=== PATIENT | female | born 1970 | race Caucasian/White ===

== ENCOUNTER → 2023-12-15 13:04 | Outpatient (REF) | payer OTHER, SELFPAY | LOC: HWRAD 13:04 | PROVIDERS: ATTENDING PHYSICIAN Nurse Practitioner | DX: I50.9 Heart failure, unspecified (principal) | CPT/HCPCS: 71046 ==

== ENCOUNTER → 2024-01-09 13:40 | Outpatient (REF) | payer OTHER, SELFPAY | LOC: HWRCS 13:40 | PROVIDERS: ATTENDING PHYSICIAN Internal Medicine Cardiovascular Disease; FAMILY PHYSICIAN Nurse Practitioner | DX: I50.21 Acute systolic (congestive) heart failure (principal) | CPT/HCPCS: 93306 ==

== ENCOUNTER 2025-01-09 21:58 | Inpatient (IN) | payer OTHER, SELFPAY ==
[2025-01-09 17:23] VITALS: BP 106/79
[2025-01-09 17:52] LABS: % Basophils 0.5 % (0-2); % Immature Granulocytes 0.2 % (0-0.5); % Lymphocytes 25.1 % (20.5-51.1); % Monocytes 8.5 % (1.7-9.3); % Neutrophils 63.7 % (42.2-75.2); Absolute Eosinophils 0.1 10^3/uL (0-0.7); Absolute Monocytes 0.4 10^3/uL (0.1-0.6); Absolute Neutrophils 2.6 10^3/uL (1.4-6.5); Hematocrit 41.7 % (37.0-47.0); Hemoglobin 14.1 g/dL (12.0-16.0); Mean Corp Hgb Conc. 33.8 g/dL (33.0-37.0); Mean Corpuscular Hgb 28.5 pg (27.0-31.0); Mean Corpuscular Volume 84.2 fL (81.0-99.0); Nucleated Red Blood Cells % 0 %; Platelet Count 236 10^3/uL (130-400); Red Blood Cell Count 4.95 10^6/uL (4.20-5.40); White Blood Cell Count 4.1 10^3/uL (4.8-10.8)
[2025-01-09 18:12] LABS: ALT (SGPT) 27 U/L (0-35); AST (SGOT) 32 U/L (14-36); Alkaline Phosphatase 94 U/L (38-126); Blood Urea Nitrogen 65 mg/dl (7-17); Calcium 9.8 mg/dl (8.4-10.2); Carbon Dioxide 31 mmol/L (22-30); Chloride 94 mmol/L (98-107); Glucose 174 mg/dl (70-99); Sodium 137 mmol/L (135-145); Total Bilirubin 0.7 mg/dl (0.2-1.3); Total Protein 7.1 g/dl (6.3-8.2); eGFR 21.54
--- NOTE | 2025-01-09 20:33 | ED.GENMED ---
History of Present Illness
General
Chief Complaint: Abnormal Lab Value
Source: patient
Exam Limitations: none
Time Seen by Provider: 01/09/25 20:18
Nursing documentation reviewed up to this point in time: agreed with
History of Present Illness
History of Present Illness:
Patient to ED for JOSEFINA. Patient states she had outpatient labs yesterday as ordered by cardiology. She was called by office today and told to come to ED due to elevated creatine. She has a prior history of renal failure approx 5 years ago related
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 She denies any current drug use. She reports increased edema to BLE over the past few days. She has a history of CHF and is on a fluid and Na restricted diet. She reports compliance. Brought self to ED tonight
for admission. She also reports pain and drainage to distal right great toe for the past few days. Bloody drainage noted on dressing. Wound culture sent. Denies fever/chills.
Past History
Past History
ED Past Medical History: CHF, HTN, Valvular disease (Aortic/Tricuspid stenosis due to endocarditis), Hypothyroidism, Psychiatric (anxiety) and Other (polysubstance abuse/IVDA, hypothyroidism, anxiety, endocarditis, sepsis with septic clots to
spleen, lungs, brain, kidneys, GI bleed with erosive esophagitis and hemorrhagic shock, COPD, polyneuropathy)
ED Past Surgical History: Cardiac (AVR TVR) and Other (Tracheostomy)
Social History
Tobacco: Former smoker
Alcohol: Chronic alcoholic (1 'large' bottle wine/day)
Drug: Former user (IV heroin) and Marijuana (gummies)
Personal: Single
Living: with family
Employment: Not employed
Review of Systems
Review of Systems
Allergies reviewed?: Yes
All Other Systems: ROS reviewed and negative except as documented in HPI and ROS
Constitutional: Reports no symptoms
EENT: Reports no symptoms
Respiratory: Reports no symptoms
Cardiac: Reports no symptoms
ABD/GI: Reports no symptoms
: Reports no symptoms
Musculoskeletal: Reports edema (+3edema BLe)
Skin: Reports other (pain and drainage from right distal great toe)
Neurological: Reports no symptoms
Psychiatric: Reports no symptoms
Phy Exam
General Physical Exam
General Presentation: well appearing and no apparent distress
General age: appears stated age
General Skin: warm and dry
General Habitus: normal
Cardiovascular Exam
Cardiovascular Exam: regular rate/rhythm and no edema
Pulmonary Exam
Pulmonary Exam: lungs clear and no respiratory distress
Gastrointestinal Exam
Gastrointestinal Exam: normal bowel sounds, non tender, soft, no organomegaly, no pulsatile mass, non distended and no cva tenderness
Musculoskeletal Exam
Musculoskeletal Exam: full ROM and neuro vasc intact
Skin Exam
Skin Exam: warm/dry and other (pain and drainage from right distal great toe. Culture obtained. +3 edema BLE)
Psychiatric Exam
Psychiatric Exam: normal mood/affect
Course
Orders/Labs/Results
Orders:
Orders
01/09/25 Breakfast
Cholesterol Lowering
At Your Request: Full Participation
Fluid Restriction: 1200 mL/day (40 oz)
Cholesterol Lowering: Sodium, 2 Gram
01/09/25 17:44
Complete Blood Count/With Diff Urgent
Comprehensive Metabolic Panel Urgent
01/09/25 20:42
Wound Culture [Wound/Abscess/Other Culture] Urgent
JESSEE Source: Toe
Specimen Description:
Date Specimen was Collected: 01/09/25
Time Specimen was Collected: 20:40
Potassium Chloride [KCl] 40 meq 0.9% Sodium Chloride 250 ml [Nss] 250 ml IV NOW
01/09/25 20:44
Lorazepam [Ativan] 0.5 mg .ROUTE .STK-MED ONE
01/09/25 20:51
Lorazepam [Ativan] 0.5 mg PO NOW STA
01/09/25 21:19
Renal & Bladder US [US Renal With Bladder] Routine
Comment:
Reason For Exam: aucte kidney injury
01/09/25 21:20
Admit/Transfer Patient As Directed
Co-Sign Provider:
Level of Care: Inpatient admission
Assign to:: Telemetry
Physician / Group: madelin
Diagnosis: acute renal failure
Reason for Telemetry: Other
Other Reason for Telemetry: hypokalemia
Date to Stop Telemetry: 01/11/25
Time to Stop Telemetry: 11:00
Reason for Hospitalization: hypokalemia
ARF
Expected length of stay greater than two midnights?: Yes
ELOS- Estimated Length of Stay in days: 3
I certify the patient meets the requirements for IP care: Yes
01/09/25 21:21
PRN Pain Medication Management As Directed
May give lesser potent ordered pain med per pt: Yes
preference::
Protocol:: Medication orders for pain may be administered in a
manner that supports deferring to patient preference
when the pt is:
- Requesting an ordered lesser potent pain medication.
Least to most potent pain medications are defined
as: acetaminophen < NSAID < tramadol < opioids
(morphine, oxycodone, hydromorphone).
- Requesting a lesser dose of the same medication IF
ORDERED.
- Requesting a less intrusive route of administration
if both routes are prescribed by the provider (PO <
IV).
01/09/25 21:22
Code Status As Directed
Resuscitation Status: Full Code
01/09/25 21:23
Urinalysis Reflex To Culture Urgent
Date Specimen was Collected: 01/09/25
Time Specimen was Collected: 21:24
Urine Creatinine Urgent
Date Specimen was Collected: 01/09/25
Time Specimen was Collected: 21:24
Urine Osmolality Random [Osmolality, Random Urine] Routine
Date Specimen was Collected: 01/09/25
Time Specimen was Collected: 21:24
Urine Potassium Routine
Date Specimen was Collected: 01/09/25
Time Specimen was Collected: 21:24
Urine Sodium Urgent
Date Specimen was Collected: 01/09/25
Time Specimen was Collected: 21:24
01/09/25 22:10
Acetaminophen [Tylenol] 650 mg PO Q4HPRN PRN
Bisacodyl [Dulcolax] 10 mg RECTAL [id number] PRN
Docusate W/Senna [Senokot-S] 1 tablet PO BIDPRN PRN
Doxepin [Sinequan] 50 mg PO HS
Metoprolol Xl [Toprol Xl] 25 mg PO HS
Polyethylene Glycol Powder [Miralax] 17 grams PO DAILYPRN PRN
01/09/25 22:10
NEPHROLOGY CONSULT Routine
Consulting Provider: Abrahan Devine
Was physician already notified: Yes
Activity As Directed
Activity Level: As Tolerated
Intake/ Output As Directed
Frequency: Per unit guidelines
Vital Signs As Directed
Frequency: Per unit guidelines
Weight As Directed
Frequency: Daily
DX Deep Vein Thrombosis Video Routine
01/10/25 06:00
Basic Metabolic Panel IN AM
Cardiovascular Evaluation IN AM
Levothyroxine [Synthroid] 125 mcg PO DAILY @ 0600
01/10/25 08:00
Buspirone [Buspar] 30 mg PO BID
Dapagliflozin [Farxiga] 10 mg PO DAILY
Ferrous Sulfate [Feosol] 325 mg PO DAILY
Heparin 5,000 units SC Q12
Magnesium l-Lactate [Mag-Tab Sr] 84 mg PO DAILY
Pantoprazole [Protonix] 40 mg PO DAILY
cariprazine [Vraylar] 1.5 mg PO DAILY
potassium 99 mg PO DAILY
01/11/25 06:00
Basic Metabolic Panel IN AM
01/11/25 11:00
DC Protocol for Telemetry ONCE
01/12/25 06:00
Basic Metabolic Panel IN AM
01/13/25 06:00
Basic Metabolic Panel IN AM
Abnormal Lab Results
01/09/25 01/09/25
17:44 21:23
WBC 4.1 L 10^3/uL
(4.8-10.8)
Absolute Lymphs (auto) 1.0 L 10^3/uL
(1.2-3.4)
Potassium 3.0 L mmol/L
(3.5-5.1)
Chloride 94 L mmol/L
(98-107)
Carbon Dioxide 31 H mmol/L
(22-30)
BUN 65 H mg/dl
(7-17)
Creatinine 2.6 H mg/dL
(0.6-1.0)
Glucose 174 H mg/dl
(70-99)
Urine Osmolality 293 L mOsm/kg
(300-900)
Urine Sodium 102 H mmol/L
(30-90)
Urine Potassium 17.1 L mmol/L
(30-90)
Urine Glucose 1+ A
(Negative)
01/09/25 17:44
01/09/25 17:44
Vital Signs
Initial and Last Documented VS:
Initial Vital Signs
Temp Pulse Resp BP Pulse Ox
97.9 F 93 18 106/79 93
01/09/25 17:23 01/09/25 17:23 01/09/25 17:23 01/09/25 17:23 01/09/25 17:23
Last Documented Vital Signs
Temp Pulse Resp BP Pulse Ox
97.9 F 65 13 95/66 99
01/09/25 17:23 01/09/25 22:00 01/09/25 22:00 01/09/25 23:12 01/09/25 23:10
*Critical Care Note
Total Time (30-74mins, 75-104mins- exclusive of procedures): Not Applicable
Update Note
Update Note:
Patient sent to ED by straight truck driver for abnormal labs. BUN/CREAT 65/2.6, K 3.0. She reports compliance with fluid and NA restrictions, compliance with her medicatons. +3 edema BLE. LCTA, pulse ox 98% RA, EKG NSR. Will admit to hospitalist
service. K-rider initiated.
ED Attending Note
-
Portions of this chart may have been created with voice recognition software.� Occasional wrong word or��sound alike� substitutions may have occurred due to the inherent limitations of voice recognition software.
Discharge Plan
Departure
Patient Disposition: Admit
Date of Disposition: 01/09/25
Time of Disposition: 20:45
Presentation/result/management discussed w/ accepting MD/DO: Hospitalist
Condition: Fair
Covid-19: Not Applicable
Discharge Problem:
Acute renal failure (ARF), Hypokalemia
Interventions
Interventions:
*Risk Screen - Suicide Last Done: 01/09/25 17:23
*General Assessment Last Done: 01/09/25 17:23
*Neglect/Abuse Screening Last Done: 01/09/25 17:23
*ED COVID-19 Vaccine History Last Done: 01/09/25 17:23
[2025-01-09 20:35] VITALS: BP 104/70
[2025-01-09 20:40] VITALS: BMI 26.7
--- NOTE | 2025-01-09 20:48 | HPS.HSE ---
Family Physician
-
Family Physician: ANALI Espana
Chief Complaint
-
abnormal labs.
History of Present Illness
54-year-old with past medical history for CHF, hypertension, valvular disease, hypothyroidism, anxiety, polysubstance abuse, hypothyroidism, anxiety, endocarditis, sepsis, GI bleed, COPD presented to us with abnormal labs. She reports increased
edema to BLE over the past few days.she has chronic sob. stated some congestion.denied cough. denied fever,chills, chest pain. denied abdominal pain,n,v,d. denied dysuria or hematuria. patient not urinating as much as she used to with Lasix. she was
on Suboxone a month. they changed to Brixadi last month.She also reports pain and drainage to distal right great toe for the past few days. Bloody drainage noted on dressing. Wound culture sent.
Upon arrival she was noted in acute renal failure and hyperkalemia. Patient received IV KCl in the ER admitted for further management.
Medical History
Past Medical History
Past Medical History: Reports Other
Additional Past Medical History:
CHF
Hypertension
Aortic/tricuspid stenosis due to endocarditis
Hypothyroidism
Anxiety
Polysubstance abuse
Hypothyroidism
Anxiety
Sepsis
GI bleed with erosive esophagitis
Sole of COPD
Polyneuropathy
Past Surgical History: Reports Other
Additional Past Surgical History:
Aortic valve replacement
TAVR
Tracheostomy
Social History
Tobacco: Former Smoker
Alcohol: Former
Drug: Former User
Personal: Single
Living: With Family
Family History
Family History: Not pertinent
Allergies / Home Medications
Allergies reflects when Allergies were last updated in [employer]
Home Medications with original date entered in [employer]
Allergy/Medication List:
Allergies
Allergy/AdvReac Type Severity Reaction Status Date / Time
No Known Allergies Allergy Verified 01/09/25 17:27
Home Medications
esomeprazole magnesium 40 mg capsule,delayed release (Nexium) 40 mg PO HS Gastrointestinal issue 05/24/21
metoprolol succinate 25 mg tablet,extended release 24 hr 25 mg PO HS 30 days #30 tabs 03/26/22
levothyroxine 125 mcg tablet (Synthroid) 125 mcg PO DAILY Thyroid 03/29/22
Medical Marijuana 1 ml PO HSPRN PRN sleep 03/26/23
Review of Systems
-
Constitutional: Reports No Symptoms
EENT: Reports No Symptoms
Respiratory: Reports Trouble Breathing
Cardiac: Reports No Symptoms
Abdomen/GI: Reports No Symptoms
: Reports No Symptoms
Musculoskeletal: Reports Edema (Bilateral lower extremity)
Skin: Reports Other (Right great toe wound)
Neurological: Reports No Symptoms
Endocrine: Reports No Symptoms
Hematologic/Lymphatic: Reports No Symptoms
Psych: Reports No Symptoms
Physical Exam
Vital Signs
Vital Signs
Temp Pulse Resp BP Pulse Ox
97.9 F 93 18 106/79 93
01/09/25 17:23 01/09/25 17:23 01/09/25 17:23 01/09/25 17:23 01/09/25 17:23
Physical Exam
General: Well Developed, Well Nourished and No Apparent Distress
HEENT: NormoCephalic, Moist mucous membranes and Atraumatic
Respiratory: Clear
Cardiac: S1/S2 and Regular Rhythm; No Murmur or Rub
GI: Soft, Non Tender, Non Distended and Normal Bowel Sounds; No Organomegaly
Rectal: Deferred by Provider
Musculoskeletal: No Clubbing, No Cyanosis and Other (Bilateral lower extremities edema)
Skin: Rash and Other (Right great toe wound)
Neuro: AO x 3 and Nonfocal/grossly intact
Psych: Calm
Laboratory Results
-
01/09/25 17:44
01/09/25 17:44
Laboratory Results
Total Bilirubin 0.7 mg/dl (0.2-1.3) 01/09/25 17:44
AST 32 U/L (14-36) 01/09/25 17:44
ALT 27 U/L (0-35) 01/09/25 17:44
Alkaline Phosphatase 94 U/L (38-126) 01/09/25 17:44
Data Reviewed
-
Lab Data: Labs Reviewed by me
Impression/Plan
-
# Acute renal failure likely from diuretics/CHF exacerbation.
# Hypokalemia
- K3.0, creatinine 2.6, BUN 65
- Repleted with IV KCl
- Hold diuretics
- Urine sodium, osmolality, urine creatinine and serum osmolality
- Obtain renal ultrasound
- Nephrology consulted
#possible CHF exacerbation
- ECHO 03/27 show EF 40-45% , well seated bioprosthetic valves.
- fluid and salt restriction continued
- strict i/o and daily weight
- continue metoprolol 25 daily
-Hold spironolactone and torsemide, defer diuretics to nephrology
# IVDA
- Patient is on Brixadi
#Anxiety - Chronic anxiety
- continue BuSpar and vraylar, doxepin
# GERD
- PPI continued
# Iron deficiency anemia
- Ferrous sulfate continued
# Hypothyroidism
- Levothyroxine continue
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
DVT PPX with heparin sq
Full Code
[2025-01-09] MEDS: ATIVAN 0.5 MG PO (20:52)
[2025-01-09 21:00] VITALS: BP 93/64
--- NOTE | 2025-01-09 21:05 | W.PN.UPDATE ---
Update Note
Progress Note Update
This is an addendum to H&P written by RIVETING MACHINE OPERATOR Isabel Burgos
I saw and examined the patient.
The RIVETING MACHINE OPERATOR's note was reviewed and I agree with the note.
Comment:
Ms. 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 Patient states she
has had significant weight loss over past month, she was depressed and not eating as much then continued to change her diet. She has continued her 48 oz fluid restriction.
Triage VS: T 97.9, P 93, RR 18, BP 106/79, SpO2 93%
On exam patient is awake, alert in no distress. + JVP, lungs clear; b/l pitting edema with venous stasis discoloration
LABS: WBC 4.1, Hg 14.1, PLT 236, Na 137, K+ 3.0, Cl 94, CO2 31, Cr 2.6, Glucose 174, liver enzymes WNL
Acute Kidney Injury
-patient appears overloaded on exam; but unclear if JOSEFINA from fluid overload versus intrinsic renal process
-follow up UA, urine studies, renal US
-Nephrology consult
-hold off on IV lasix for now given patient's K low, respiratory status stable and etiology of JOSEFINA unclear
Hypokalemia
-s/p 40mEq in the ER, repeat tomorrow AM
Heart Failure preserved EF
-hold DAIRY CHEMIST Torsemide and Spironolactone as above, follow up renal recs on diuresis; may need IV diuresis tomorrow once K improved
Essential HTN - DAIRY CHEMIST Metoprolol
Hx IVDA
Hx Endocarditis s/p aortic and tricuspid valve replacement
Hypothyroidism - DAIRY CHEMIST Synthroid
Anxiety
-DAIRY CHEMIST Buspar
Remainder of plan per RIVETING MACHINE OPERATOR note
76 minutes spent on patient care
[2025-01-09] MEDS: KCL 270 MEQ IV (21:14)
[2025-01-09 21:35] LABS: Urine Albumin Negative (Neg - Trace); Urine Bilirubin Negative (Negative); Urine Character Clear (Clear); Urine Color Yellow; Urine Glucose 1+ (Negative); Urine Ketone Negative (Negative); Urine Leukocyte Negative (Negative); Urine Nitrite Negative (Negative); Urine Occult Blood Negative (Negative); Urine Urobilinogen Negative (Neg - 1+)
[2025-01-09 21:42] LABS: Osmolality Urine 293 mOsm/kg (300-900)
[2025-01-09 21:53] LABS: Urine Potassium 17.1 mmol/L (30-90); Urine Sodium 102 mmol/L (30-90)
[2025-01-09] MEDS: SINEQUAN 50 MG PO (23:07)
[2025-01-10] VITALS (10 sets, daily range): BP systolic 80–98; BP diastolic 54–70; BMI 28.7; BMI 29.0
[2025-01-10 06:37] LABS: Blood Urea Nitrogen 60 mg/dl (7-17); Calcium 9.6 mg/dl (8.4-10.2); Carbon Dioxide 32 mmol/L (22-30); Chloride 97 mmol/L (98-107); Estimated Creatinine Clearance 32 ml/min; Glucose 123 mg/dl (70-99); HDL Cholesterol 37 mg/dl; LDL Cholesterol, Calculated 55 mg/dl; Potassium 2.7 mmol/L (3.5-5.1); Sodium 139 mmol/L (135-145); Total Cholesterol 122 mg/dl (50-199); Triglyceride 153 mg/dl (10-149); Very Low Density Lipoprotein 30 mg/dl (0-30)
[2025-01-10] MEDS: KCL 40 MEQ PO ×2 (06:59→09:16)
[2025-01-10] MEDS: BUSPAR 30 MG PO ×2 (06:59→21:33)
[2025-01-10] MEDS: SYNTHROID 125 MCG PO (06:59)
[2025-01-10] MEDS: FEOSOL 325 MG PO (08:14)
[2025-01-10] MEDS: HEPARIN 5000 UNITS SC ×2 (08:14→21:35)
[2025-01-10] MEDS: PROTONIX 40 MG PO (08:14)
[2025-01-10] MEDS: MAG-TAB SR 84 MG PO (08:14)
[2025-01-10] MEDS: FARXIGA 10 MG PO (08:14)
[2025-01-10 09:35] LABS: Magnesium 1.9 mg/dl (1.6-2.3)
--- NOTE | 2025-01-10 13:38 | W.PN.HOSP.TC ---
Today's Communication/Plan
-
monitor vitals
see plan
monitor renal function
hold farxiga
nephrology to evaluate
echo
check bnp
Assessment / Plan
Assessment / Plan
General: Well Developed, Well Nourished and No Apparent Distress
HEENT: NormoCephalic, Moist mucous membranes and Atraumatic
Respiratory: Clear
Cardiac: S1/S2 and Regular Rhythm; No Murmur or Rub
GI: Soft, Non Tender, Non Distended and Normal Bowel Sounds; No Organomegaly
Musculoskeletal: Other (Bilateral lower extremities edema)
Skin: (Right great toe wound)
Neuro: AO x 3 and Nonfocal/grossly intact
Psych: Calm
Acute renal failure likely from diuretics
# Hypokalemia
- K3.0, creatinine 2.6, BUN 65
Replete potassium aggressively
- Hold diuretics
- Obtain renal ultrasound without acute abnormality
Nephrology consulted
Avoid nephrotoxic agents
History of CHF
Check BNP
denies sob
- ECHO 01/25 show EF 50-55% , well seated bioprosthetic valves. Sees Dr. Natarajan in outpatient
check echo
- fluid and salt restriction continued
- strict i/o and daily weight
- continue metoprolol 25 daily
-Hold spironolactone and torsemide, defer diuretics to nephrology
# IVDA
- Patient is on Brixadi
#Anxiety - Chronic anxiety
- continue BuSpar and vraylar, doxepin
# GERD
- PPI continued
# Iron deficiency anemia
- Ferrous sulfate continued
# Hypothyroidism
- Levothyroxine continue
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
DVT PPX with heparin sq
Full Code
Anticipated Discharge: > 48 hours
Subjective/Interval History
-
Date of Service: January 10, 2025
denies pain
Objective Data
-
Labs:
Laboratory Results
01/10/25 01/10/25
06:00 13:34
Sodium 139
Potassium 2.7 L* Pending
Chloride 97 L
Carbon Dioxide 32 H
BUN 60 H
Creatinine 2.0 H
Glucose 123 H
Calcium 9.6
Vital Signs:
Vital Signs
Temp Pulse Resp BP Pulse Ox
97.9 F 79 13 91/68 97
01/09/25 17:23 01/10/25 12:00 01/10/25 12:00 01/10/25 07:04 01/10/25 04:15
--- NOTE | 2025-01-10 14:22 | W.CON.NEPH ---
Consultation
-
Date/Time Consultation Requested: January 09, 2025 at 2220
Date/Time Consultation Performed: January 10, 2025 at 12 PM
Requesting Provider: Dr. Alvarez
Performing Provider: Dr. Devine
Reason for Consultation: Acute kidney
Medical History
-
Chief Complaint: Acute kidney injury
History of Present Illness:
54-year-old with past medical history for CHF, hypertension, valvular disease, hypothyroidism, anxiety, polysubstance abuse, hypothyroidism, anxiety, endocarditis, sepsis, GI bleed, COPD presented to us with abnormal labs. Previous acute kidney
injury 2019 when she had endocarditis required dialysis temporary
Renal consult for acute kidney injury with a creatinine of 2.9 in outpatient setting
Reviewed outpatient records from shoe caser and primary care physician baseline creatinine 1.2-1.3.
She had previously been on Entresto but had discontinued that on her own.
She takes Farxiga metolazone torsemide and spironolactone
She also takes ibuprofen at least 3-4 times per week
Past Medical History
CHF, hypertension, valvular disease, hypothyroidism, anxiety, polysubstance abuse, hypothyroidism, anxiety, endocarditis, sepsis, GI bleed, COPD previous dialysis
Social History
Tobacco: Non-Smoker
Alcohol: None
Drug: Former User
Family History
No renal disease
Allergies / Home Medications
Allergy/AdvReac Type Severity Reaction Status Date / Time
No Known Allergies Allergy Verified 01/09/25 17:27
�Medication �Instructions �Recorded �Confirmed �Type
esomeprazole magnesium 40 mg 40 mg PO DAILY Gastrointestinal 05/24/21 01/09/25 History
capsule,delayed release (Nexium) issue
metoprolol succinate 25 mg 25 mg PO HS 30 days #30 tabs 03/26/22 01/09/25 Rx
tablet,extended release 24 hr
levothyroxine 125 mcg tablet 125 mcg PO DAILY Thyroid 03/29/22 01/09/25 History
(Synthroid)
Medical Marijuana 1 ml PO HSPRN PRN sleep 03/26/23 01/09/25 History
buprenorphine 96 mg/0.27 mL 96 mg SC Q28D 01/09/25 01/09/25 History
solution,exten.rel.subcutaneous
syringe (Brixadi Monthly)
buspirone 30 mg tablet 30 mg PO BID 01/09/25 01/09/25 History
cariprazine 1.5 mg capsule 1.5 mg PO DAILY 01/09/25 01/09/25 History
(Vraylar)
dapagliflozin propanediol 10 mg 10 mg PO DAILY 01/09/25 01/09/25 History
tablet (Farxiga)
doxepin 50 mg capsule 50 - 100 mg PO HS 01/09/25 01/09/25 History
ferrous sulfate 325 mg (65 mg 325 mg PO DAILY 01/09/25 01/09/25 History
iron) tablet
magnesium oxide 400 mg PO DAILY 01/09/25 01/09/25 History
metolazone 2.5 mg tablet 2.5 mg PO DAILYPRN PRN fluid gained 01/09/25 01/09/25 History
potassium 99 mg tablet 99 mg PO DAILY 01/09/25 01/09/25 History
spironolactone 25 mg tablet 25 mg PO DAILY 01/09/25 01/09/25 History
torsemide 20 mg tablet 40 mg PO BID 01/09/25 01/09/25 History
Review of Systems
-
Mild lower extremity edema no chest pain or shortness of breath
All other systems: Negative unless noted
Physical Exam
Vital Signs
Vital Signs
Temp Pulse Resp BP Pulse Ox
97.9 F 79 13 91/68 97
01/09/25 17:23 01/10/25 12:00 01/10/25 12:00 01/10/25 07:04 01/10/25 04:15
Lab Results
WBC 4.1 10^3/uL (4.8-10.8) L 01/09/25 17:44
RBC 4.95 10^6/uL (4.20-5.40) 01/09/25 17:44
Hgb 14.1 g/dL (12.0-16.0) 01/09/25 17:44
Hct 41.7 % (37.0-47.0) 01/09/25 17:44
Plt Count 236 10^3/uL (130-400) 01/09/25 17:44
Sodium 139 mmol/L (135-145) 01/10/25 06:00
Potassium 4.0 mmol/L (3.5-5.1) D 01/10/25 13:34
Chloride 97 mmol/L (98-107) L 01/10/25 06:00
Carbon Dioxide 32 mmol/L (22-30) H 01/10/25 06:00
BUN 60 mg/dl (7-17) H 01/10/25 06:00
Creatinine 2.0 mg/dL (0.6-1.0) H 01/10/25 06:00
eGFR 29.50 01/10/25 06:00
Glucose 123 mg/dl (70-99) H 01/10/25 06:00
Calcium 9.6 mg/dl (8.4-10.2) 01/10/25 06:00
Albumin 4.0 g/dl (3.5-5.0) 01/09/25 17:44
Physical Exam
General no acute distress
HEENT no cephalic atraumatic extraocular muscle intact no scleral icterus no JVD neck supple
lungs clear to auscultation bilateral
heart regular S1-S2 positive
abdomen soft nontender positive bowel sounds
extremities +1 edema pulses present bilateral
Neurologically nonfocal alert and oriented x 3
Skin no lesions no abrasions no petechiae
Psych normal affect no bizarre behavior
Data Reviewed
-
Radiology: Image Personally Visualized and interpreted
Ultrasound: Image Personally Visualized and interpreted
Labs: Labs Reviewed by me and Discussed with Patient
Assessment/Plan
-
54-year-old with past medical history for CHF, hypertension, valvular disease, hypothyroidism, anxiety, polysubstance abuse, hypothyroidism, anxiety, endocarditis, sepsis, GI bleed, COPD presented to us with abnormal labs. Previous acute kidney
injury 2019 when she had endocarditis required dialysis temporary
Renal consult for acute kidney injury with a creatinine of 2.9 in outpatient setting
Reviewed outpatient records from shoe caser and primary care physician baseline creatinine 1.2-1.3.
She had previously been on Entresto but had discontinued that on her own.
She takes Farxiga metolazone torsemide and spironolactone
She also takes ibuprofen at least 3-4 times per wee
Impression.
Acute kidney injury multifactorial on glomerular modifying medications in conjunction with chronic NSAID use
Hypokalemia
CHF ejection fraction 50 to 55% as of January 2024.
Bioprosthetic aortic valve/bioprosthetic tricuspid valve
Former IV drug use
Plan.
Continue to hold torsemide, Farxiga, spironolactone.
Will start IV fluid.
Check renal ultrasound.
Urinalysis bland other than glucose on SGLT2 inhibitor.
BMP in the morning
[2025-01-10] MEDS: NSS 1000 IV ×2 (15:15→22:55)
[2025-01-10 15:34] LABS: NT-proBNP 1980 pg/ml
--- NOTE | 2025-01-10 15:56 | EDRN ---
Pt denies pain. Pt requests wound consult for her toe and a crisis consult. Pt says she has a psychiatrist she does not like and would like to find someone new. Additionally, she is caring for family members and is under a lot of stress and would
like to speak with someone. Libra Alvarez and Sherri listed on pt's chart however neither are rehabilitation director. TT to Dr Carly [place] who will place wound consult and said Dr Alvarez can address crisis consult request tomorrow.
--- NOTE | 2025-01-10 17:09 | WOUNDNOTE ---
R GREAT TOENAIL (TOENAIL LOOSE)
--- NOTE | 2025-01-10 17:11 | WOUNDNOTE ---
[facility] RN note: Patient admitted with acute renal failure. Patient lives with her mother and brother.
See H&P for complete history.
PMH: CHF, valvular disease, AVR, TVR 2019, lymphedema, former drug user, COPD, previous dialysis, GI bleed, COPD, endocarditis, anxiety.
Wound Location and type/assessment: Patient admitted with: R great ingrown toenail with loose toenail, crusted drainage along medial toenail edge. Trace to +1 LE edema (R normally greater than L). +Pedal pulses. Coccyx crease mild red skin suspect
from previous skin breakdown. Patient is mobile. R plantar heel dry skin, slightly calloused skin.
Appetite: good.
Pressure redistribution devices in place: ED stretcher. Patient moves self.
Plan: Cleansed R great toenail crusted area with saline, protective gauze pad applied. Heels elevated with air chair cushion. [place] texted Dr. Alvarez picture of R great toe/toenail, Dr. Alvarez approved local care, knee high Chritsiano wraps (patient uses at
home and takes off q hs), recommend podiatry consult. Dr. Alvarez to evaluate for podiatry consult tomorrow. Knee high Christiano wrap applied. Patient tolerated well.
Care plan to be updated and will follow peripherally as needed. Patient to follow up with steno typist.
--- NOTE | 2025-01-10 21:30 | PTCARENOTE ---
Pt. manual BP noted to be 88/58. Pt asymptomatic. ANALI Zamora notified. NSS @125ml/hr maintained. Plan of care ongoing.
[2025-01-10] MEDS: SINEQUAN 50 MG PO (21:34)
[2025-01-11] VITALS (8 sets, daily range): BP systolic 83–97; BP diastolic 52–78; BMI 29.4
--- NOTE | 2025-01-11 03:15 | PTCARENOTE ---
Patient manual blood pressure noted to be 84/52. Patient still asymptomatic receiving fluids at 125 ml/hr. ANALI Ojeda made aware. Plan of care ongoing.
[2025-01-11] MEDS: SYNTHROID 125 MCG PO (05:47)
[2025-01-11] MEDS: NSS 1000 IV (07:40)
[2025-01-11] MEDS: BACTROBAN 2% OINTMENT 1 APPLIC TOPICAL (08:23)
[2025-01-11] MEDS: PROTONIX 40 MG PO (08:30)
[2025-01-11] MEDS: FEOSOL 325 MG PO (08:31)
[2025-01-11] MEDS: MAG-TAB SR 84 MG PO (08:31)
[2025-01-11] MEDS: HEPARIN 5000 UNITS SC ×2 (08:31→20:44)
[2025-01-11] MEDS: BUSPAR 30 MG PO ×2 (08:39→20:44)
--- NOTE | 2025-01-11 10:05 | W.PN.NEPH.PH ---
Today's Communication / Plan
-
cap IVF
Assessment/Plan
-
54-year-old with past medical history for CHF, hypertension, valvular disease, hypothyroidism, anxiety, polysubstance abuse, hypothyroidism, anxiety, endocarditis, sepsis, GI bleed, COPD presented to us with abnormal labs. Previous acute kidney
injury 2019 when she had endocarditis required dialysis temporary
Renal consult for acute kidney injury with a creatinine of 2.9 in outpatient setting
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
She had previously been on Entresto but had discontinued that on her own.
She takes Farxiga metolazone torsemide and spironolactone
She also takes ibuprofen at least 3-4 times per wee
Impression.
Acute kidney injury multifactorial on glomerular modifying medications in conjunction with chronic NSAID use
Hypokalemia
CHF ejection fraction 50 to 55% as of January 2024.
Bioprosthetic aortic valve/bioprosthetic tricuspid valve
Former IV drug use
Plan.
Continue to hold torsemide, Farxiga, spironolactone.
cap IVF
follow BMP
maintain chronic 48oz FR
-
-
Date of Service: January 11, 2025
CC / HPI / ROS
-
Chief Complaint:
JOSEFINA
History of Present Illness:
JOSEFINA/Cr down to 2 yesterday, labs pending today
BP stable
edema stable
Review of Systems:
no CP/SOB
panic attack
Labs
-
Labs:
WBC 4.1 10^3/uL (4.8-10.8) L 01/09/25 17:44
RBC 4.95 10^6/uL (4.20-5.40) 01/09/25 17:44
Hgb 14.1 g/dL (12.0-16.0) 01/09/25 17:44
Hct 41.7 % (37.0-47.0) 01/09/25 17:44
Plt Count 236 10^3/uL (130-400) 01/09/25 17:44
eGFR 29.50 01/10/25 06:00
Zrr-Y-Lbhtiwyrtsy Pept 1980 pg/ml 01/10/25 06:00
Albumin 4.0 g/dl (3.5-5.0) 01/09/25 17:44
Physical Exam
-
Vital Signs:
Vital Signs
Temp Pulse Resp BP Pulse Ox
97.7 F 74 16 97/69 98
01/11/25 07:37 01/11/25 07:37 01/11/25 07:37 01/11/25 07:37 01/11/25 07:37
Cardiovascular:: Regular rate and rhythm
Respiratory:: Bilateral: Coarse
Lung Excursion:: Normal
Abdomen:: Nontender and Soft
Bowel Sounds:: Normal
Extremity Edema:: +2: Bilateral:
[2025-01-11] MEDS: ATIVAN 0.5 MG PO (10:12)
[2025-01-11 10:41] LABS: Blood Urea Nitrogen 44 mg/dl (7-17); Calcium 9.3 mg/dl (8.4-10.2); Carbon Dioxide 29 mmol/L (22-30); Chloride 103 mmol/L (98-107); Estimated Creatinine Clearance 53 ml/min; Glucose 101 mg/dl (70-99); Potassium 3.6 mmol/L (3.5-5.1); Sodium 141 mmol/L (135-145); eGFR 45.27
--- NOTE | 2025-01-11 11:29 | PTCARENOTE ---
at 11:14, patient's automatic b/p 83/70, asymptomatic, sitting oob in chair. rechecked b/p manually and at 11:29 and it was 96/79, will continue to monitor.
--- NOTE | 2025-01-11 12:27 | CM ---
Initial Assessment completed with pt at bedside.
Pt is a 54yr old female admitted with acute renal failure.
At baseline, pt lives with her mom and brother in a multi level home with 4 steps to enter and a railing. Pt has a 1st floor set up and is indep/driving at baseline. Pt has shower bars, commode, and a trach.
At home, pt is seen by [facility] for home care support. Pt has been to [facility] following her trach.
Pt shared concerns about her home psychiatrist who is through [facility]. She does have a community development manager through [facility] and plans to reach out to inquire about an alternate Psychiatrist.
PCP; Emily Giordano
Pharm; [facility]
--- NOTE | 2025-01-11 12:37 | W.PN.HOSP.TC ---
Today's Communication/Plan
-
Monitor vital signs and see plan
Monitor renal function
nephrology following
Assessment / Plan
Assessment / Plan
General: Well Developed, Well Nourished and No Apparent Distress
HEENT: NormoCephalic, Moist mucous membranes and Atraumatic
Respiratory: Clear
Cardiac: S1/S2 and Regular Rhythm; No Murmur or Rub
GI: Soft, Non Tender, Non Distended and Normal Bowel Sounds; No Organomegaly
Musculoskeletal: Other (Bilateral lower extremities edema)
Skin: (Right great toe wound)
Neuro: AO x 3 and Nonfocal/grossly intact
Psych: Calm
Acute kidney injury likely from diuretics
# Hypokalemia
- K3.0, creatinine 2.6, BUN 65
Replete potassium aggressively
- Hold diuretics
-renal ultrasound without acute abnormality
Nephrology following, status post IVF.
Avoid nephrotoxic agents
History of CHF
denies sob
- ECHO 01/25 show EF 50-55% , well seated bioprosthetic valves. Sees Dr. Natarajan in outpatient
Echo 01/10 with bioprosthetic aortic valve with moderate to severe stenosis, EF 55 to 60%
- fluid and salt restriction continued
- strict i/o and daily weight
- continue metoprolol 25 daily
-Hold spironolactone and torsemide, defer diuretics to nephrology
ingorn right toe nail
no clear discharge at this time; discussed with patient, wants to hold with podiatry outpatient. if signs of sepsis then inpatient evaluation
No leukocytosis, fever
wound cx done by ed, could be contaminant. per patient its not bothering much
# IVDA
- Patient is on Brixadi
#Anxiety - Chronic anxiety
- continue BuSpar and vraylar, doxepin
will f/u with psych outpatient
# GERD
- PPI continued
# Iron deficiency anemia
- Ferrous sulfate continued
# Hypothyroidism
- Levothyroxine continue
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
DVT PPX with heparin sq
Full Code
Anticipated Discharge: 24 - 48 hours
Subjective/Interval History
-
Date of Service: January 11, 2025
denies nausea
Objective Data
-
Labs:
Laboratory Results
01/11/25
07:32
Sodium 141
Potassium 3.6
Chloride 103
Carbon Dioxide 29
BUN 44 H
Creatinine 1.4 H
Glucose 101 H
Calcium 9.3
Vital Signs:
Vital Signs
Temp Pulse Resp BP Pulse Ox
97.9 F 83 17 96/78 94
01/11/25 11:14 01/11/25 11:14 01/11/25 11:14 01/11/25 11:29 01/11/25 11:14
I&O
01/10/25 01/11/25 01/12/25
06:59 06:59 06:59
Intake Total 360 / 360
Balance 360 / 360
[2025-01-11] MEDS: LIDOCAINE 4% PATCH 1 PATCH TOPICAL (13:03)
--- NOTE | 2025-01-11 16:54 | PTCARENOTE ---
at 0959, patient sitting oob and chair and crying and said, 'I think I'm having a panic attack!' 'Can I have some Ativan?'. Dr. Alvarez made aware and ordered Ativan 0.5mgs Po x1 and it was administered with good relief, tolerating diet, independent
in room, vss, will continue to monitor.
[2025-01-11] MEDS: SINEQUAN 50 MG PO (20:44)
[2025-01-12] VITALS (7 sets, daily range): BP systolic 92–111; BP diastolic 58–85; BMI 29.7
[2025-01-12] MEDS: SYNTHROID 125 MCG PO (06:04)
[2025-01-12] MEDS: LIDOCAINE 4% PATCH 1 PATCH TOPICAL (07:56)
[2025-01-12] MEDS: MAG-TAB SR 84 MG PO (07:57)
[2025-01-12] MEDS: BUSPAR 30 MG PO ×2 (07:57→19:10)
[2025-01-12] MEDS: FEOSOL 325 MG PO (07:57)
[2025-01-12] MEDS: HEPARIN 5000 UNITS SC ×2 (07:57→19:11)
[2025-01-12] MEDS: PROTONIX 40 MG PO (07:57)
[2025-01-12] MEDS: BACTROBAN 2% OINTMENT 1 APPLIC TOPICAL (07:58)
[2025-01-12 08:46] LABS: Blood Urea Nitrogen 32 mg/dl (7-17); Calcium 9.9 mg/dl (8.4-10.2); Carbon Dioxide 30 mmol/L (22-30); Chloride 100 mmol/L (98-107); Estimated Creatinine Clearance 57 ml/min; Glucose 121 mg/dl (70-99); Sodium 141 mmol/L (135-145); eGFR 49.48
[2025-01-12] MEDS: ATIVAN 0.5 MG PO (11:54)
--- NOTE | 2025-01-12 12:04 | W.PN.HOSP.TC ---
Today's Communication/Plan
-
Monitor vital signs see plan
Monitor blood pressure closely
monitor Renal function
hold torsemide, Farxiga and Aldactone for now
Assessment / Plan
Assessment / Plan
General: Well Developed, Well Nourished and No Apparent Distress
HEENT: NormoCephalic, Moist mucous membranes and Atraumatic
Respiratory: Clear
Cardiac: S1/S2 and Regular Rhythm; No Murmur or Rub
GI: Soft, Non Tender, Non Distended and Normal Bowel Sounds; No Organomegaly
Musculoskeletal: Other (Bilateral lower extremities edema)
Skin: (Right great toe ingrown nail)
Neuro: AO x 3 and Nonfocal/grossly intact
Psych: Calm
Acute kidney injury likely from diuretics
# Hypokalemia
- K3.0, creatinine 2.6, BUN 65
Replete potassium aggressively
- Hold diuretics
-renal ultrasound without acute abnormality
Nephrology following, status post IVF.
Avoid nephrotoxic agents
Creatinine slowly improving, 1.3 today
History of CHF
denies sob
- ECHO 01/25 show EF 50-55% , well seated bioprosthetic valves. Sees Dr. Natarajan in outpatient
Echo 01/10 with bioprosthetic aortic valve with moderate to severe stenosis, EF 55 to 60%
- fluid and salt restriction continued
- strict i/o and daily weight
- continue metoprolol 25 daily
-Hold spironolactone and torsemide, defer diuretics to nephrology
ingrown right toe nail
no clear discharge at this time; discussed with patient, wants to hold with podiatry outpatient. if signs of sepsis then inpatient evaluation
No leukocytosis, fever
wound cx done by ed, could be contaminant. per patient its not bothering much
# IVDA
- Patient is on Brixadi
#Anxiety - Chronic anxiety
- continue BuSpar and vraylar, doxepin
will f/u with psych outpatient
# GERD
- PPI continued
# Iron deficiency anemia
- Ferrous sulfate continued
# Hypothyroidism
- Levothyroxine continue
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
DVT PPX with heparin sq
Full Code
Anticipated Discharge: Within 24 hours
Subjective/Interval History
-
Date of Service: January 12, 2025
get anxious at times
Objective Data
-
Labs:
Laboratory Results
01/12/25
07:43
Sodium 141
Potassium 4.0
Chloride 100
Carbon Dioxide 30
BUN 32 H
Creatinine 1.3 H
Glucose 121 H
Calcium 9.9
Vital Signs:
Vital Signs
Temp Pulse Resp BP Pulse Ox
98.4 F 90 18 103/65 96
01/12/25 11:04 01/12/25 11:04 01/12/25 11:04 01/12/25 11:04 01/12/25 11:04
I&O
01/11/25 01/12/25 01/13/25
06:59 06:59 06:59
Intake Total 360 / 360 570 / 570
Balance 360 / 360 570 / 570
--- NOTE | 2025-01-12 12:45 | W.PN.NEPH.PH ---
Today's Communication / Plan
-
Restart torsemide
Assessment/Plan
-
54-year-old with past medical history for CHF, hypertension, valvular disease, hypothyroidism, anxiety, polysubstance abuse, hypothyroidism, anxiety, endocarditis, sepsis, GI bleed, COPD presented to us with abnormal labs. Previous acute kidney
injury 2019 when she had endocarditis required dialysis temporary
Renal consult for acute kidney injury with a creatinine of 2.9 in outpatient setting
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
She had previously been on Entresto but had discontinued that on her own.
She takes Farxiga metolazone torsemide and spironolactone
She also takes ibuprofen at least 3-4 times per wee
Impression.
Acute kidney injury multifactorial on glomerular modifying medications in conjunction with chronic NSAID use
Hypokalemia
CHF ejection fraction 50 to 55% as of January 2024.
Bioprosthetic aortic valve/bioprosthetic tricuspid valve
Former IV drug use
Plan.
Continue to hold Farxiga, spironolactone.
Restart torsemide 40 mg twice daily
follow BMP
maintain chronic 48oz FR
-
-
Date of Service: January 12, 2025
CC / HPI / ROS
-
Chief Complaint:
JOSEFINA
History of Present Illness:
JOSEFINA/Cr down to 1.3
BP stable
edema stable
Review of Systems:
No chest pain or shortness of breath
Labs
-
Labs:
WBC 4.1 10^3/uL (4.8-10.8) L 01/09/25 17:44
RBC 4.95 10^6/uL (4.20-5.40) 01/09/25 17:44
Hgb 14.1 g/dL (12.0-16.0) 01/09/25 17:44
Hct 41.7 % (37.0-47.0) 01/09/25 17:44
Plt Count 236 10^3/uL (130-400) 01/09/25 17:44
Sodium 141 mmol/L (135-145) 01/12/25 07:43
Potassium 4.0 mmol/L (3.5-5.1) 01/12/25 07:43
Chloride 100 mmol/L (98-107) 01/12/25 07:43
Carbon Dioxide 30 mmol/L (22-30) 01/12/25 07:43
BUN 32 mg/dl (7-17) H 01/12/25 07:43
Creatinine 1.3 mg/dL (0.6-1.0) H 01/12/25 07:43
eGFR 49.48 01/12/25 07:43
Glucose 121 mg/dl (70-99) H 01/12/25 07:43
Calcium 9.9 mg/dl (8.4-10.2) 01/12/25 07:43
Ata-Q-Gbchlydukxa Pept 1980 pg/ml 01/10/25 06:00
Albumin 4.0 g/dl (3.5-5.0) 01/09/25 17:44
Physical Exam
-
Vital Signs:
Vital Signs
Temp Pulse Resp BP Pulse Ox
98.4 F 90 18 103/65 96
01/12/25 11:04 01/12/25 11:04 01/12/25 11:04 01/12/25 11:04 01/12/25 11:04
Cardiovascular:: Regular rate and rhythm
Respiratory:: Bilateral: Coarse
Lung Excursion:: Normal
Abdomen:: Nontender and Soft
Bowel Sounds:: Normal
Extremity Edema:: +2: Bilateral:
[2025-01-12] MEDS: DEMADEX 40 MG PO (15:58)
[2025-01-12] MEDS: SINEQUAN 50 MG PO (22:42)
[2025-01-12] MEDS: TYLENOL 650 MG PO (23:22)
[2025-01-13 03:48] VITALS: BP 82/52
[2025-01-13 06:00] VITALS: BMI 29.5
[2025-01-13] MEDS: SYNTHROID 125 MCG PO (06:05)
[2025-01-13 06:23] LABS: % Basophils 0.5 % (0-2); % Eosinophils 3.2 % (0-6); % Immature Granulocytes 0.3 % (0-0.5); % Lymphocytes 31.3 % (20.5-51.1); % Monocytes 14.6 % (1.7-9.3); % Neutrophils 50.1 % (42.2-75.2); Absolute Eosinophils 0.1 10^3/uL (0-0.7); Absolute Lymphocytes 1.2 10^3/uL (1.2-3.4); Absolute Monocytes 0.5 10^3/uL (0.1-0.6); Absolute Neutrophils 1.9 10^3/uL (1.4-6.5); Hematocrit 40.1 % (37.0-47.0); Hemoglobin 13.2 g/dL (12.0-16.0); Mean Corp Hgb Conc. 32.9 g/dL (33.0-37.0); Mean Corpuscular Hgb 28.4 pg (27.0-31.0); Mean Corpuscular Volume 86.4 fL (81.0-99.0); Mean Platelet Volume 9.9 fL (7.4-10.4); Nucleated Red Blood Cells % 0 %; Platelet Count 190 10^3/uL (130-400); Red Blood Cell Count 4.64 10^6/uL (4.20-5.40); Red Cell Dist. Width 13.3 % (11.5-14.5); White Blood Cell Count 3.7 10^3/uL (4.8-10.8)
[2025-01-13 06:53] LABS: Blood Urea Nitrogen 35 mg/dl (7-17); Calcium 9.6 mg/dl (8.4-10.2); Carbon Dioxide 32 mmol/L (22-30); Chloride 98 mmol/L (98-107); Estimated Creatinine Clearance 57 ml/min; Glucose 121 mg/dl (70-99); Potassium 3.5 mmol/L (3.5-5.1); Sodium 139 mmol/L (135-145); eGFR 49.48
[2025-01-13 07:05] VITALS: BP 125/74
[2025-01-13] MEDS: BUSPAR 30 MG PO (08:50)
[2025-01-13] MEDS: MAG-TAB SR 84 MG PO (08:51)
[2025-01-13] MEDS: PROTONIX 40 MG PO (08:51)
[2025-01-13] MEDS: FEOSOL 325 MG PO (08:51)
[2025-01-13] MEDS: DEMADEX 40 MG PO (08:51)
[2025-01-13] MEDS: LIDOCAINE 4% PATCH 1 PATCH TOPICAL (08:52)
[2025-01-13] MEDS: HEPARIN 5000 UNITS SC (08:52)
[2025-01-13 11:05] VITALS: BP 140/81
--- NOTE | 2025-01-13 11:26 | PTCARENOTE ---
pt reports last BM on Monday
[2025-01-13] MEDS: BACTROBAN 2% OINTMENT 1 APPLIC TOPICAL (12:09)
--- NOTE | 2025-01-13 12:09 | W.PN.NEPH.PH ---
Today's Communication / Plan
-
Sign off
Assessment/Plan
-
54-year-old with past medical history for CHF, hypertension, valvular disease, hypothyroidism, anxiety, polysubstance abuse, hypothyroidism, anxiety, endocarditis, sepsis, GI bleed, COPD presented to us with abnormal labs. Previous acute kidney
injury 2019 when she had endocarditis required dialysis temporary
Renal consult for acute kidney injury with a creatinine of 2.9 in outpatient setting
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
She had previously been on Entresto but had discontinued that on her own.
She takes Farxiga metolazone torsemide and spironolactone
She also takes ibuprofen at least 3-4 times per wee
Impression.
Acute kidney injury multifactorial on glomerular modifying medications in conjunction with chronic NSAID use
Hypokalemia
CHF ejection fraction 50 to 55% as of January 2024.
Bioprosthetic aortic valve/bioprosthetic tricuspid valve
Former IV drug use
Plan.
Creatinine now down to baseline of 1.3
Continue to hold Farxiga, spironolactone.
Restarted torsemide 40 mg twice daily
follow BMP
maintain chronic 48oz FR
We will sign off
-
-
Date of Service: January 13, 2025
CC / HPI / ROS
-
Chief Complaint:
JOSEFINA
History of Present Illness:
JOSEFINA/Cr down to 1.3
BP stable
edema stable
Review of Systems:
No chest pain or shortness of breath
Labs
-
Labs:
WBC 3.7 10^3/uL (4.8-10.8) L 01/13/25 05:42
RBC 4.64 10^6/uL (4.20-5.40) 01/13/25 05:42
Hgb 13.2 g/dL (12.0-16.0) 01/13/25 05:42
Hct 40.1 % (37.0-47.0) 01/13/25 05:42
Plt Count 190 10^3/uL (130-400) 01/13/25 05:42
Sodium 139 mmol/L (135-145) 01/13/25 05:42
Potassium 3.5 mmol/L (3.5-5.1) 01/13/25 05:42
Chloride 98 mmol/L (98-107) 01/13/25 05:42
Carbon Dioxide 32 mmol/L (22-30) H 01/13/25 05:42
BUN 35 mg/dl (7-17) H 01/13/25 05:42
Creatinine 1.3 mg/dL (0.6-1.0) H 01/13/25 05:42
eGFR 49.48 01/13/25 05:42
Glucose 121 mg/dl (70-99) H 01/13/25 05:42
Calcium 9.6 mg/dl (8.4-10.2) 01/13/25 05:42
Tfi-W-Aqqgenkamfy Pept 1980 pg/ml 01/10/25 06:00
Albumin 4.0 g/dl (3.5-5.0) 01/09/25 17:44
Physical Exam
-
Vital Signs:
Vital Signs
Temp Pulse Resp BP Pulse Ox
98.9 F 111 18 140/81 96
01/13/25 11:05 01/13/25 11:05 01/13/25 11:05 01/13/25 11:05 01/13/25 11:05
Cardiovascular:: Regular rate and rhythm
Respiratory:: Bilateral: Coarse
Lung Excursion:: Normal
Abdomen:: Nontender and Soft
Bowel Sounds:: Normal
Extremity Edema:: +2: Bilateral:
--- NOTE | 2025-01-13 14:14 | W.PN.HOSP.TC ---
Today's Communication/Plan
-
DC
Assessment / Plan
Assessment / Plan
Acute kidney injury felt multifactorial by nephrology.
Improved creatinine from 2.6-1.3.
renal ultrasound without acute abnormality
Nephrology following, status post IVF. Nephrology signed off today and cleared for discharge from point.
Diuretics restarted. Advised to keep holding home Farxiga and Aldactone till seen by cardiology.
History of CHF
Not short of breath. Not hypoxic.
- ECHO 01/25 show EF 50-55% , well seated bioprosthetic valves. Sees Dr. Natarajan in outpatient
Echo 01/10 with bioprosthetic aortic valve with moderate to severe stenosis, EF 55 to 60%
- fluid and salt restriction continued
- strict i/o and daily weight
- continue metoprolol 25 daily
- Hold spironolactone and Farxiga for now.
- Patient says she follows up with cardiology-infectious had visit 2 to 3 weeks ago, was supposed to get an echocardiogram. Discussed with patient about the echocardiogram findings on this admission including stenosis across aortic and tricuspid
valves. Advised to follow-up with cardiology.
# IVDA
- Patient is on Brixadi
#Anxiety - Chronic anxiety
- continue BuSpar and vraylar, doxepin
will f/u with psych outpatient
# GERD
- PPI continued
# Iron deficiency anemia
- Ferrous sulfate continued
# Hypothyroidism
- Levothyroxine continue
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
DVT PPX with heparin sq
Full Code
Medically stable for discharge home today.
More than 30 minutes spent in discharge including
Final examination of the patient
Summarizing hospital stay
Instructions for continuing care to all relevant caregivers
Preparation of discharge records, prescriptions, and referral forms
Total time spent (in minutes): 32 minutes
Anticipated Discharge: Today
Subjective/Interval History
-
Date of Service: January 13, 2025
Patient without any specific complaints.
Denies any nausea vomiting or abdominal pain. Tolerating diet.
Denies any chest pain, shortness of breath, or palpitations.
Lower extremity edema in fact better than before per patient
Denies dizziness.
Objective Data
-
Labs:
Laboratory Results
01/13/25
05:42
WBC 3.7 L
Hgb 13.2
Hct 40.1
Plt Count 190
Sodium 139
Potassium 3.5
Chloride 98
Carbon Dioxide 32 H
BUN 35 H
Creatinine 1.3 H
Glucose 121 H
Calcium 9.6
Vital Signs:
Vital Signs
Temp Pulse Resp BP Pulse Ox
98.9 F 111 18 140/81 96
01/13/25 11:05 01/13/25 11:05 01/13/25 11:05 01/13/25 11:05 01/13/25 11:05
I&O
01/12/25 01/13/25 01/14/25
06:59 06:59 06:59
Intake Total 570 / 570 840 / 840 480 / 480
Balance 570 / 570 840 / 840 480 / 480
Review of Systems
-
Constitutional: Denies Fever
EENT: Denies Sore Throat
Respiratory: Denies Cough
Physical Exam
-
General: No Apparent Distress
HEENT: Moist Mucous Membranes
Respiratory: Clear to Auscultation
Cardiac: Regular Rhythm and S1/S2
GI: Soft; Negative Nontender, Nondistended or Normal Bowel Sounds
Musculoskeletal: Edema, Right Lower Extrem and Edema, Left Lower Extrem
Neuro: AO x 3
Psych: Calm
Data Reviewed
-
Labs: Labs Reviewed by me
--- NOTE | 2025-01-13 14:20 | PTCARENOTE ---
patient reported headache this am, but verbalized after having caffeine it was improved and declined need for PRN Tylenol, tolerating diet, remains independent, vss, for discharge to home today. will continue to monitor.
[2025-01-13 15:13] VITALS: BP 127/66
--- NOTE | 2025-01-13 16:12 | CM ---
CM following for discharge planning. Pt known to [facility] and is followed by a [facility] in the community.
Plan: Discharge to home with [facility].
--- NOTE | 2025-01-14 07:58 | W.DCSUMMARY ---
Discharge Summary
Discharge Data
Date of Admission: 01/09/25
Date of Discharge: 01/13/25
-
Pending Results: No
Hospital Course
Primary diagnosis:
Acute kidney injury suspected multifactorial
Secondary diagnosis:
Heart failure with preserved EF
History of intravenous drug abuse and infective endocarditis
History of aortic and tricuspid valve replacement after infective endocarditis
Hospital course:
Presented after outpatient labs showed increased creatinine. Creatinine was 2.6 with potassium of 3.0 and BUN of 31. Baseline creatinine. 1.2-1.3. She was taking ibuprofen at least 3-4 times per week. She was also on Farxiga, metolazone,
torsemide and Aldactone. Apparently she was on Entresto which she discontinued on her own.
She was also eating less and losing weight. Her last discharge weight in our system was 203 lbs in summer 2022 and on admission she was 182 pounds. She apparently was also continuing her fluid restriction. Was also hypertensive on admission with
systolics in 80s without extrarenal losses no change in her ejection fraction on echo.
Clinical suspicion is multifactorial including medications, NSAID use. Renal ultrasound showed no evidence of obstruction.
She was seen by solderer torch and was supported with IV fluids initially holding her GDMT medication. Creatinine improved gradually to 1.3 at the time of discharge which is her baseline. Torsemide was restarted. Her discharge weight was 187
pounds. She was advised to continue to keep off of Farxiga and Aldactone for now. Advised to follow-up with cardiology regarding reinitiation of GDMT medication.
Consultants on board:
Nephrology-Abrahan Devine DO
Discharge Plan
-
Patient Disposition: Home (Routine Discharge)
Discharge Diagnosis/Procedures: JOSEFINA suspected multifactorial
Diet: 2 Gram Sodium and Restrict fluids to 64 oz
Activity: As tolerated
Driving Restrictions: As prior to admission
Bathing Restrictions: None
Blood Work: BMP blood work in 1 week-arrange through PCP
Specialty Instructions: Weigh Daily- Call MD for wt gain/loss 3 lbs overnight/5 lbs in 1 week
Activity Restrictions/Additional Instructions:
Wound Care Instructions
R great toe affected area-clean with saline, Bactroban ointment, cover with dry gauze daily.
Bilateral knee high Christiano wraps as tolerated; remove at bedtime; reapply every morning.
Elevate heels off bed with pillow/s.
Follow up with computer numerical control programmer.
Referrals:
Emily Giordano CRNP [Family Provider] - in less than 1 week
Rimma Natarajan MD [Active] - in two weeks
Prescriptions:
Continued
esomeprazole magnesium [Nexium] 40 MG capsule,delayed release(DR/EC)
40 mg PO DAILY
metoprolol succinate 25 mg Tablet Extended Release 24 Hr
25 mg PO HS 30 Days Qty: 30 0RF
levothyroxine [Synthroid] 125 mcg Tablet
125 mcg PO DAILY
Medical Marijuana
1 ml PO HSPRN PRN (Reason: sleep)
doxepin 50 mg Capsule
50 - 100 mg PO HS
torsemide 20 mg Tablet
40 mg PO BID
potassium 99 mg Tablet
99 mg PO DAILY
buspirone 30 mg Tablet
30 mg PO BID
ferrous sulfate 325 mg (65 mg iron) Tablet
325 mg PO DAILY
Vraylar 1.5 mg Capsule
1.5 mg PO DAILY
Rx Instructions:
patien has free samples
magnesium oxide 400 mg magnesium Tablet
400 mg PO DAILY
Brixadi 96 mg/0.27 mL Solution, Extended Rel Syringe
96 mg SC Q28D
Held
metolazone 2.5 mg Tablet
2.5 mg PO DAILYPRN PRN (Reason: fluid gained)
Hold Instructions: Resume on 01/27/25. Renew after seen by cardiology
spironolactone 25 mg Tablet
25 mg PO DAILY
Hold Instructions: Resume on 01/27/25. Renew after seen by cardiology
dapagliflozin propanediol [Farxiga] 10 mg Tablet
10 mg PO DAILY
Hold Instructions: Resume on 01/27/25. Renew after seen by cardiology
Discharge Orders:
Discharge Patient (As Directed); Ordered 01/13/25
Ordered By: Winston Azar
Discharge Date and Time
Discharge Date/Time: 01/13/25 16:24
Print Language: FAROESE
== END 2025-01-13 16:24 | disposition home health service (06) | DRG 683 ==
LOC: 3 WEST ACU 21:58
PROVIDERS: Emergency Medicine; Internal Medicine; Registered Nurse; ADMITTING PHYSICIAN Student in an Organized Health Care Education/Training Program; ATTENDING PHYSICIAN Internal Medicine; CONSULT PHYSICIAN Internal Medicine Nephrology; EMERGENCY PHYSICIAN Student in an Organized Health Care Education/Training Program; FAMILY PHYSICIAN Nurse Practitioner
DX: N17.9 Acute kidney failure, unspecified (principal); I50.32 Chronic diastolic (congestive) heart failure; I11.0 Hypertensive heart disease with heart failure; F19.11 Other psychoactive substance abuse, in remission; F41.9 Anxiety disorder, unspecified; K21.9 Gastro-esophageal reflux disease without esophagitis; D50.9 Iron deficiency anemia, unspecified; E03.9 Hypothyroidism, unspecified; J44.9 Chronic obstructive pulmonary disease, unspecified; G62.9 Polyneuropathy, unspecified; Z87.891 Personal history of nicotine dependence; Z79.890 Hormone replacement therapy; Z79.899 Other long term (current) drug therapy; Z95.3 Presence of xenogenic heart valve; Z79.1 Long term (current) use of non-steroidal anti-inflammatories (NSAID); E87.6 Hypokalemia
CPT/HCPCS: 76770; 80048; 80053; 80061; 81003; 82570; 83735; 83880; 83935; 84132; 84133; 84300; 85025; 87070; 87077; 87147; 87186; 87205; 93306; 99285

== ENCOUNTER → 2025-08-15 08:52 | Outpatient (REF) | payer OTHER, SELFPAY | LOC: HWRCS 08:52 | PROVIDERS: ATTENDING PHYSICIAN Nurse Practitioner; FAMILY PHYSICIAN Nurse Practitioner | DX: Z95.2 Presence of prosthetic heart valve (principal) | CPT/HCPCS: 93306 ==